=== PATIENT | male | born 1960 | race Two or more races ===

== ENCOUNTER 2024-07-09 10:20 | Outpatient (AMB) | payer MEDICAID, SELFPAY ==
[2024-07-09 10:49] VITALS: BP 121/85; PULSE 103; RESP 18; TEMP 36; O2SAT 97; BMI 39.2
--- NOTE | 2024-07-09 10:49 | PD.ORTHCLVIS ---
Vital signs 07/09/24 10:49 Height 1.7 m Height Method Stated Weight 113.426 kg Weight Measurement Method Standing Scale BMI 39.2 BP 121/85 H Blood Pressure Source Automatic Cuff Blood Pressure Location Left Upper Arm Position Sitting Respiration 18 Pulse 103 H Pulse Source Monitor Temp 96.8 F Temp Source Temporal Artery Scan Pulse Oximetry (%) 97 Oxygen Delivery Method Room Air Med/Allergies Allergies & Medications Allergies No Known Drug Allergies Allergy (Verified 07/09/24 10:57) Medication Reconciliation aspirin 81 mg chewable tablet 81 mg PO QDAY 02/17/24 [History Confirmed 07/09/24] atorvastatin 40 mg tablet 40 mg PO QDAY 02/17/24 [History Confirmed 07/09/24] bisacodyl 5 mg tablet,delayed release 5 mg PO QHS 02/17/24 [History Confirmed 07/09/24] cholecalciferol (vitamin D3) 50 mcg (2,000 unit) capsule 50 mcg PO QDAY 02/17/24 [History Confirmed 07/09/24] lisinopril 30 mg tablet 30 mg PO QDAY 02/17/24 [History Confirmed 07/09/24] meloxicam 7.5 mg tablet 7.5 mg PO QDAY #45 tabs 02/17/24 [Rx Confirmed 07/09/24] metformin 850 mg tablet 850 mg PO QDAY 02/17/24 [History Confirmed 07/09/24] naproxen 500 mg tablet 500 mg PO BID 02/17/24 [History Confirmed 07/09/24] Exam Exam Patient is in no acute distress and is cooperative with the examination today. Breathing is nonlabored. In no respiratory distress. Bilateral extremities were evaluated and demonstrates sensation intact to light touch. Palpable pedal pulses are present. No significant edema is present. Bilateral hips were examined. The patient has no pain with log roll of the hips. Internal rotation to 30 degrees and external rotation to 30 degrees is painless. Negative FADIR. The left knee was examined. The left knee is in [varus] alignment. Range of motion from [0-115] degrees. Knee is stable to varus and valgus as well as AP translation with <5mm. Patient has a [negative] Mc[place]rays. There is [no] pain with patellofemoral compression and [no] crepitus noted. The knee is [tender] to palpation [medially]. The right knee was also examined. The right knee is in [varus] alignment. Range of motion from [0-120] degrees. Knee is stable to varus and valgus as well as AP translation with <5mm. Patient has a [negative] Mc[place]rays. There is [no] pain with patellofemoral compression and [no] crepitus noted. The knee is [tender] to palpation [medially]. X-rays demonstrate bilateral knee arthritis. There is complete obliteration of the medial joint space and osteophytes Assessment and Plan Problem List (1) Degenerative arthritis of knee, bilateral: Status: Acute Plan: Patient is a 63-year-old male with bilateral knee arthritis. He was told he possibly needs surgery. Patient has significant bilateral knee arthritis. We discussed nonoperative and operative options. He like repeat injections today. Recommend knee cortisone injections as patient would like to proceed with conservative treatment at this time. The risks and benefits of the procedure were reviewed with the patient and patient gave verbal consent to continue with the procedure. Procedure: performed by Dr. Moreno Using sterile technique the Bilateral knees were thoroughly prepped with alcohol, and approximately 1 cc of Kenalog 40 mg/mL and 4 cc of 1% lidocaine was injected into each knee without resistance into the medial tibial femoral joint space. The patient tolerated the procedure. Office Procedures GNS Level of Care Nursing/Assessment Patient Status: Established Patient Nursing Assessment/Reassesment: Medication Reconciliation, Update PMH in EMR and Vital Signs Coordination of Care: Complex Care and Chronic Disease 1-5, Education Complex Pt/Fam, Consent,records obtained, informed consent, 1 Ins Authorization, Lab and Imaging orders, Results/Orders obtained and Staff clarify orders Special Needs: Language special needs Established Patient Charge Established Patient Point Assignment: 125 Established Patient Point Charge: EP Level 4 (120-155) Surgical Proc/IM SQ injection Major Surgical Procedure: Yes (BILATERAL KNEE INJECTION) Medication Given Medication Given Medication Given: Yes Documented Dose Given: 8 Route: Infiitration Medication Given Medication Given Medication Given: Yes Documented Dose Given: 2 Route: Infiitration Office Meds Xylocaine 10 mg/mL (1 %) injection solution Performing Provider: Celestine Moreno MD Performing Location: [facility] Administered by: Celestine Moreno MD on 07/09/24 11:16 Dose Route Admin Location Dispensed Lot Number Expiration Date [facility] [employer] 40 mL Infiltration 40 mL [id number] 02/26/27 34230-773-21 [employer] triamcinolone acetonide 40 mg/mL suspension for injection Performing Provider: Celestine Moreno MD Performing Location: [facility] Administered by: Celestine Moreno MD on 07/09/24 11:16 Dose Route Admin Location Dispensed Lot Number Expiration Date [facility] [employer] 80 mg Infiltration 2 mL [id number] 11/26/25 8047-3378-63 [employer] MA Intake Visit Data Collection New Patient or Established: Established Patient (seen at [facility] within 3 years) Reason for Visit:: 3 MTH F/U BL KNEE INJ Seen by Clinical Staff ONLY (RN/MA): No Master Control Operator Required: Yes PCP or OBGYN visit in last 3 months: Yes Hx Now: No Do You Feel Safe at Home: Yes Authorities Contacted: N/A Questionairres Past Medical History Past Medical History Have you ever been diagnosed with any of the following: Cardiology Problems Hypertension: Yes Respiratory Problems Smoking: Yes Smoking Cessation Counseling: No Smoking Exposure: No Tobacco Use: No Endocrine Problems Diabetes Mellitus Type 2: Yes Subjective Visit Visit for: follow up visit, knee and injections Immunization / Flu Flu Vaccine in the Last 12 Months: No Flu Vaccine Exclusion Criteria: No Exclusion Criteria History of Present Illness Chief complaint: Bilateral knee pain Patient is a 63-year-old male with bilateral knee pain and bilateral knee arthritis. He did well with the last cortisone injection and would like another 1 today. He is going to [place] today Pain Pain level (0-10): 3 Pain location: inside (medial) Pain quality: aching Associated signs & symptoms: none Ambulatory data Ambulatory device: none Treatments Improvement with previous injections: Yes Improvement with PT: No Improvement with NSAIDS: no Review of Systems Review of Systems: All systems negative unless otherwise noted in HPI.
== END 2024-07-09 11:11 | disposition home or self-care (01) ==
PROVIDERS: Supervising Provider Orthopaedic Surgery Adult Reconstructive Orthopaedic Surgery; Visit Provider Orthopaedic Surgery Adult Reconstructive Orthopaedic Surgery
DX: M17.0 Bilateral primary osteoarthritis of knee (principal); I10 Essential (primary) hypertension
CPT/HCPCS: 20610; 99214; J3301; J3490; G0463